=== PATIENT | female | born 1950 ===

== ENCOUNTER 2025-06-14 06:17 | Day surgery (SDC) | payer MEDICARE, SELFPAY | END 2025-06-14 12:12 | disposition home or self-care (01) | LOC: GI 06:17 | PROVIDERS: ATTENDING PHYSICIAN Internal Medicine | DX: Z12.11 Encounter for screening for malignant neoplasm of colon (principal); K64.8 Other hemorrhoids; D12.0 Benign neoplasm of cecum; D12.2 Benign neoplasm of ascending colon; D12.3 Benign neoplasm of transverse colon; D17.5 Benign lipomatous neoplasm of intra-abdominal organs | CPT/HCPCS: 45385; 45380; 88305 ==